=== PATIENT | female | born 1980 | race Caucasian/White ===

== ENCOUNTER 2024-07-06 07:50 | Outpatient (AMB) | payer OTHER, SELFPAY ==
--- OUTSIDE RECORDS SUMMARY | 2024-07-06 07:54 | XMS_ITS | Data Portability ---
Author Organization [facility] sones, [facility] Address [address] [place] [phone] Care Team Providers Care Apartment Groundskeeper Name Role Phone WASHINGTON THAKKAR Referring Provider [phone] WASHINGTON THAKKAR Referring Provider WASHINGTON THAKKAR Primary Care Provider Assessment Encounter Date Assessment Date Assessment LastModified by Organization Details LastModified Time 12/31/2023 12/31/2023 IMPRESSION: Memory problems. ? Difficulty in pulling in information from widely varying topics in real-time; ? Difficulty in remembering details of information from recent seminars or workshops. ? Unchanging since emergent ~2004. ? 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 This situation likely relates to an innate, relative lack of robustness and a particular subdomain of the patient's memory systems, within an overall sophisticated/robus t profile of cognitive capabilities. This is a natural variation that occurs across individuals. No individual has uniformly superior capabilities across all cognitive domains. This is not a disease. There may be a relatively reduced robustness in her ability to have a wide focus of attention and thus to remember in parallel a large number of unrelated concepts without in memory aid. This is in contrast to her evident superior capability to focus mind and memory in particular in a single direction with superior analytic and synthetic capabilities, evidenced by her successful completion of her PhD. 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 This is in contrast to her strong semantic memory, again evidenced by her PhD, and explaining her capability and remembering important physical content. which have strong somatic content. The issue only emerged into awareness and graduate school because only in graduate school were her mental faculties sufficiently tasked for this variation of her cognitive capabilities across domains to become evident. I gave an analogy from baseball: Virtually all major league baseball players outperform all of their peers during early development through high school and through minor leaks or college. It is only when they reach the major leagues that they can perceive that they might be better in some skills than other major leaguers, worse at other skills. I suggested pursuing alternate cognitive processing pathways to reach goals that are hampered by her relatively reduced robust this in certain memory tasks as just discussed. 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 I suggested taking notes at workshops and seminars such as occur at [facility], with special attention to references that might be given on slides. If she finds none, a question for a reference to the present or, after the seminar by provider with relevant references. She might download the reference and refer to the reference in her notes so that she can use it when she wishes to refresh her memory on the particular workshop/seminar. With respect to difficulty in taking in parallel information across disparate/varied topics, I suggested a large screen attached to her computer so that multiple articles or documents are open at the same time so that she can easily refer across these different information sources as she is trying to synthesize during a task. I suggested that if she wished a second opinion, she might consider a neuropsychologist. I am less expert at what I think is going on than a neuropsychologist. A neuropsychologist would be able to do a detailed neuropsychology evaluation providing specific understanding on peaks and valleys across and within cognitive domains. From this, they might be able to offer more specific guidance on alternate cognitive processing strategies. We briefly discussed alternate diagnoses that I think less likely. I do not think there is a significant abnormality that might be found by brain MRI, such as an occult tumor. Over the course of 20 years, there would have been worsening. She wondered about whether concussive injuries from her history of soccer playing might play a role. Chronic traumatic encephalopathy is the disease classification in this situation. This can present with slowly worsening memory, usually with negative behavioral changes. She has neither. One can never exclude chronic traumatic encephalopathy. Brain MRI can suggest chronic traumatic encephalopathy in someone of her young age if there is significant small brain volume (usually refer to as atrophy by the neuroradiologists). Given her absence of suggestive symptoms, I think this is quite unlikely. Although I think unlikely these to issues that are related to brain MRI abnormality, I offered brain MRI. This offer was not excepted. Occasionally, deficiencies in B12 and/or D vitamins, dysregulation of thyroid hormones, and tertiary syphilis can all cause cognitive disability. These are unlikely for someone her age and/or with her presentation. Went untreated, all usually involves slow worsening which is not present. Nevertheless, I suggest that these be checked at her next yearly physical with primary care. Primary care reported the patient did not note any symptoms or diagnosis of attention deficit. Today, she says that her mind might moved to unconnected topics during seminars. However, her mind stayed on the central topic during grad school when that topic related to her thesis work. She still had her memory problems. This makes attention deficit less likely but does not exclude this possibility. Should she feel, upon thinking over the situation, that maybe she does have some attention deficit, a trial of an appropriate medication? Ritalin, Adderall or all related medication? should not cause harm and may provide elucidation. I defer to primary care in this eventuality unless it is desired for me to manage this direction. There was one direction that I did not address sufficiently: Primary care reports that she has no major changes in sleep patterns but sometimes she wakes in the middle of the night. I did not follow this up to understand how often she wakes in the middle of the night, and whether she feels unrested when she wakes in the morning on those occasions or more generally. If this is the case, then perhaps there is a sleep disorder that may worsen her memory. I defer to primary care for considering sleep medicine consultation in such a case. Medications per patient: Nicole , Vitamin D >>>>>>>>>>>> PLAN Yanelis De La Cruz December 31, 2023 Follow-up as needed. isamar Not available 12/31/2023 19:53:24 Plan of Treatment Reminders Order Date Submit Date Provider Last Modified By Organization Details Last Modified Time Details Appointments None record ed. Lab None record ed. Referral None record ed. Procedures None record ed. Surgeries None record ed. Imaging None record ed. Medication Orders None record ed. Patient TargetsNo targets recorded. Patient InstructionsNo instructions recorded. Reason for Referral None Reported. Procedures Surgical History Date Name Laterality Status Provider Name and Address Organization Details Recorded Time 12/31/2023 DATA REVIEW completed Jagdish Etienne MD [address] [place] [address] [place], [phone], [facility] Neurology [facility] 12/31/2023 19:35:38 Imaging Results None recorded. Procedure Notes None recorded. Medical Equipment None Reported. Allergies No known drug allergies Medications Name Sig Start Date Stop Date Status Note LastModified by Organization Details LastModified Time nitrofurantoin monohydrate/mac rocrystals 100 mg capsule TAKE 1 CAPSULE BY MOUTH TWICE A DAY FOR 5 DAYS active Not Available Not Available No t Available calcium active Not Available Not Avail able Not Available Vitamin D active Not Available Not Margarita ilable Not Available Nicole Allergy active Not Available N ot Available Not Available Vitals Date Recorded Body height Body mass index (BMI) Body weight Respiratory rate Provider Name and Address Organization Details Last Updated DateTime 12/31/2023 172.72 cm 22 kg/m2 90984.89 g 12 /min Layne Romero [facility] 12/31/2023 14:56:46 Social History Question Answer Notes LastModified by Organizat ion Details LastModified Time Tobacco Smoking Status [facility] 12/31/2023 14:57:59 What Is Your Level Of Alcohol Consumption? Occasional Information not available 12/31/2023 What Is Your Level Of Caffeine Consumption? Moderate Information not available 12/31/2023 What Is The Highest Grade Or Level Of School You Have Completed Or The Highest Degree You Have Received? [id number] Information not available 12/31/2023 Which Of Your Hands Is Dominant? Right Information not available 12/31/2023 Sex: Unknown Functional Status None recorded. Mental Status None recorded. Family History Relationship Description Onset Age of this Age Resolved Age Notes LastModified by Organization Details LastModified Time Mother Disorder of thyroid gland Not available 2023 14:57:46 Medical History Condition Response Claustrophobia N Head Trauma/Injury N Hospitalizations N High Blood Pressure or Hypertension N Thyroid Problems N Depression N Brain Tumors N Lung Disease N COPD or emphysema N Encephalitis N PTSD N Vitamin B12 deficiency N Heart Attack ([place]) N Spine Problems N Obstructive Sleep Apnea N Alcoholism N Diabetes N Autoimmune disease N Bleeding Disorder N Arthritis N Cerebral Palsy N Tuberculosis N Developmental Problems N Neck Problems N Cancer N Back Problems N Stroke N Asthma N Heartburn, acid reflux, GERD N Vitamin D Deficiency N Epilepsy/Seizures N Bipolar Disorder N Sleep Disorder N Aneurysm N Hepatitis N Liver Disease N Heart Disease N Fibromyalgia N Headaches N High Cholesterol or Hyperlipidemia N Osteoporosis N Kidney Disease N Gynecological HistoryNo gynecological history recorded. Obstetrics History GPAL:G 0 P 0 0 0 0 Past Encounters Encounter ID Performer Location Encounter Start Date Encounter Closed Date Diagnosis/Indication Diagnosis SNOMED-CT Code Diagnosis ICD10 Code Diagnosis Note [id number] Jagdish Etienne MD [address] [place] [address] 12/31/2023 14:42:57 01/04/2024 09:51:28 Mild neurocognitive disorder 704600770 G31.84 Health Concerns Section Related Observation LastModified by Organization Detai ls LastModified Time None Recorded Concern Status LastModified by Organization Details LastModified Time None Recorded Advance Directives Directive None Recorded Payers Encounter Date Sequence Insurance Name Policy Number Policy Mcgrath Covered Member ID Mcgrath Member ID Guarantor Name 12/31/[address] [facility] [employer] (PPO) [id number] 1 Yanelis F Jono [id number] Yanelis Jono Notes Date Note Type Note Provider Name and Address Organization Details Recorded Time 12/31/2023 text/html Yanelis Warnerjanell December 31, 2023 presents for initial neurology consultation for assessment and management of problems with memory emerging ~2004, in correlation with starting grad school, and fluctuating since then, without any enduring worsening or improvement.? 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 She is unaccompanied.She remembers no problems with memory growing up or through college? during which time she majored in chemical engineering.>>>>>>> >>>>>December 31, 2023 presenting symptomotology:In 2004, with starting graduate school, she began noticing memory problems. These problems occurred prominently in the context of seminars, after which she had trouble remembering the salient contents. This is despite participating actively in discussions during a seminar. Perhaps her mind sometimes moved to different topics while a seminar was going on. This was not true with the seminar happen to focus on her central recharged topic. Her memory for events after the seminar felt lacking whether or not there was such a focus.Since finishing graduate school, she has encountered situations similar to graduate school seminars at workshops conducted by [employer]. In such settings, she continues to find problems with remembering salient contents similar to her problems in graduate school.She notes particular problem with remembering numbers. If her asked how much money there is in their bank accounts, she has no idea. I suggest that remembering related to finances can be a loaded topic, affected by emotions relating to money. She does not disagree, but notes that she also has had problems remembering numbers from reading or seminars such as percentages of subjects with particular outcomes in experiments of interest to her. She remembers a [employer] sponsored seminar in recent times where there was an especially interesting talk which she left thinking that she wanted to follow-up on the results as it had bearing on some of her interests. When she talked about the subject to her , she found her memory lacking in details from that talk that she remembers clearly of remembers clearly world particular interest. Days later, all she could remember was that the talk was about UTIs.She emphasizes that she had no memory problems in college. She could remember the important constants within the calculations needed within her chemical engineering classes. Classes in general were focused and she did not need to pull and information from widely varying sources to complete her college tasks. Seminars and workshops are different: They require integrating information from widely varying topics in real-time.With curriculum planning, she is slowed because she might do something related to curriculum planning and forget that she has done this. She might ask her labor relations director to work on something and then forget she has done this and bring up the same subject with the labor relations director at a later date.She reaffirms a conclusion that primary care has come to that she does not have significant depression or anxiety. She notes that she is not good at remembering movies. Jagdish Etienne MD [address] [place] [address] [place], [phone], [facility] 01/04/2024 19:33:47 OBGyn Episode No OBEpisode recorded.
--- NOTE | 2024-07-06 08:02 | MHC.OFFVIS ---
Vital Signs 07/06/24 08:04 Height 5 ft 8 in Weight 143 lb 11.862 oz BMI 21.9 BP 98/70 Blood Pressure Location Lt brachial Position Sitting Pulse 77 Pulse Source Pulse Oximeter Pulse Oximetry (%) 100 Oxygen Delivery Method Room Air Intake Visit Reasons: Raynaud's syndrome Intake Note: Pt presents today with raynaud's. Allergies No Known Allergies Allergy (Verified 07/06/24 08:05) HPI HPI Raynaud's syndrome: Details: On two occasions tip of finger turned blue. She warmed it right away. Denies sicca symptoms, fever, rash, oral ulcer, urinary symptoms, dyspnea, pleurisy and joint swelling. Right ankle gave out on her when jogging on a few occasions in the last year. She fell on one occasion while jogging. Jumping at son's soccer practice recently, she felt that the ankle would give out. When she was young she played soccer and basketball and injured her ankles. She reports spraining her ankles on multiple occasions. At 1 incident she thought she broke her ankle. 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 Good respiratory effort Skin: No lesions seen MSK: No tenderness of any joint. No synovitis. Normal range of motion of upper extremity and lower extremity. Power 5/5 ankle flexors and extensors. Assessment & Plan Assessment & Plan (1) Unstable right ankle: Comment: Subjectively. Exam is unremarkable. I have ordered x-ray for further evaluation with consideration of secondary osteoarthritis contributing from past injuries in childhood. Code(s): M25.371 - Other instability, right ankle Category: Medical Plan: X-ray right ankle ordered Patient agreed to physical rehabilitation for ankle strengthening. PT requisition given to patient as she prefers to do physical therapy locally in [place]. Return to clinic in 6 months or sooner if needed (2) Raynaud disease without gangrene: Comment: Raynaud's syndrome is managed with conservative management History of High titer positive KUSUM and positive Ro antibody without clinical signs or symptoms of systemic connective tissue disease. Code(s): I73.00 - Raynaud's syndrome without gangrene Category: Medical Plan: Continue conservative management. Orders: Orders XR ankle RT min 3V Today M25.371 - Other instability, right ankle PT Evaluation and Treatment Today M25.371 - Other instability, right ankle Coding Level of Care Code Est Pt Level 4 (66877) Complex EM visit Add On G2211 Diagnoses Unstable right ankle M25.371 Raynaud disease without gangrene I73.00
[2024-07-06 08:04] VITALS: BP 98/70; PULSE 77; O2SAT 100; BMI 21.9
== END 2024-07-06 08:30 | disposition home or self-care (01) ==
PROVIDERS: Visit Provider Internal Medicine Rheumatology
DX: M25.371 Other instability, right ankle (principal); I73.00 Raynaud's syndrome without gangrene
CPT/HCPCS: 99214

== ENCOUNTER → 2024-07-06 07:50 | Outpatient (BNVA) | payer OTHER, SELFPAY | PROVIDERS: Visit Provider Internal Medicine Rheumatology ==

== ENCOUNTER 2025-01-11 09:01 | Outpatient (AMB) | payer OTHER, SELFPAY ==
--- OUTSIDE RECORDS SUMMARY | 2011-10-30 | XMS_ITS | Encounter Summary ---
Author Organization [facility] Address Critical access hospital [facility] [address] [place] [phone] Phone Care Team Providers Care Forensic Pathologist Name Role Phone Unavailable Primary Care Provider Unavailabl e Encounter Details Date Type Department Care Team (Late st Contact Info) Description 10/30/2011 Hospital Encounter [facility],Outside Imaging [address] [place], [place] [id number] System, Provider [place] In, [place] [address] Social History Tobacco Use Types Packs/Day Years Used Date Smoking Tobacco: Never Smokeless Tobacco: Never Alcohol Use Standard Drinks/Week Comments Yes 3 (1 standard drink = 0.6 oz pur e alcohol) Education Answer Date Recorded Are you interested in more education? Not on alla e 08/22/2022 Are you concerned about learning? Not on file 08/22/2022 No 08/22/2022 No 08/22/2022 Digital Access Answer Date Recorded No 09/22/2022 No 09/22/2022 Reliable internet access at home? Not on file 09/22/2022 Device with a working camera? 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 Not on file Not on file documented as of this encounter Plan of Treatment Upcoming Encounters Date Type Department Care Team (Late st Contact Info) Description 10/12/2024 Procedure Pass [address] [place] [address] 05/09/2025 10:15 AM EST Appointment [address] [place] [address] System, Provider Not In, [facility] [address] [address] documented as of this encounter Procedures Procedure Name Priority Date/Time Associated Diagnosis Comments BI MAMMOGRAM OUTSIDE (NO INTERPRETATION) Routine 10/30/2011 12:00 AM EDT documented in this encounter Results * Mammogram Outside (No Interpretation) (10/30/2011 12:00 AM EDT) Narrative SYSTEMGENERATED, DOCUMENTATION - 06/24/2019 10:38 AM EST This study is for PACS storage only and not for interpretation. us Provider Not In System PhD IMG OUTSIDE IMAGING W /OUT INTERPRETATION Final Result documented in this encounter Visit Diagnoses Not on filedocumented in this encounter Additional Source Comments The information contained in this document represents components of the legal health record. It is not the complete legal health record.[facility]
[2025-01-11 09:06] VITALS: BP 100/70; PULSE 78; O2SAT 100; BMI 21.6
--- NOTE | 2025-01-11 09:06 | MHC.OFFVIS ---
Vital Signs 01/11/25 09:06 Height 5 ft 8 in Weight 142 lb BMI 21.6 BP 100/70 Blood Pressure Location Lt brachial Position Sitting Pulse 78 Pulse Source Pulse Oximeter Pulse Oximetry (%) 100 Oxygen Delivery Method Room Air Intake Visit Reasons: 6 months Intake Note: Pt presents today with raynaud's. Accompanied by: Self / Same As Patient Allergies No Known Allergies Allergy (Verified 07/06/24 08:05) HPI HPI 6 months: Details: No recurrent ankle issue. She did not have a fall. She started running and it seemed to help improve her and girdle stability. She went to PT for a session who did not find that her ankle was week. She has an exercise routine at home with using a stationary bike and weightlifting. She is currently going to physical therapy for mid back muscle strain. Denies fevers, dyspnea, pleurisy, oral ulcers or genital ulcers, sicca symptoms, migraines, urinary symptoms, joint swelling. Raynaud's syndrome triggered in the morning. She feels tingling in her fingertips. Eventually goes away. It may last a few hours. Soreness in right 3-4th proximal phalanx for a few months. No injury. Occurs with flexing. Stiffness and soreness last 30 minutes in the morning. 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 Good respiratory effort Skin: No lesions seen. No digital ulcerations. No digital discoloration. MSK: No tenderness of any joint. No synovitis. Normal range of motion of upper extremity and lower extremity. Assessment & Plan Assessment & Plan (1) Unstable right ankle: Comment: Resolved. Code(s): M25.371 - Other instability, right ankle Category: Medical Plan: Monitor clinically (2) Raynaud disease without gangrene: Comment: Raynaud's syndrome is active in the morning. She does not have any signs or symptoms suggestive of systemic connective tissue at this time. History of High titer positive KUSUM and positive Ro antibody. Code(s): I73.00 - Raynaud's syndrome without gangrene Category: Medical Plan: We discussed conservative measures. She will bring electric hand warmer to her office and start warming her hands. Return to clinic in 1 year or sooner if needed (3) Tendinitis of extensor tendon of right hand: Comment: Localized pain in the morning with stiffness to right 3rd and 4th proximal phalanx may be related to tendonitis of extensor tendon. We discussed conservative management Code(s): M77.8 - Other enthesopathies, not elsewhere classified Category: Medical Plan: OT ordered to have done local to her home X-ray of right hand ordered Return to clinic in 1 year or sooner if needed (4) Hand pain, right: Code(s): M79.641 - Pain in right hand Category: Medical Plan: See above Orders: Orders OT Evaluation and Treatment Today M77.8 - Other enthesopathies, not elsewhere classified XR hand RT min 3V Today M79.641 - Pain in right hand Coding Level of Care Code Est Pt Level 4 (53793) Complex EM visit Add On G2211 Diagnoses Unstable right ankle M25.371 Raynaud disease without gangrene I73.00 Tendinitis of extensor tendon of right hand M77.8 Hand pain, right M79.641
--- OUTSIDE RECORDS SUMMARY | 2025-01-11 10:33 | XMS_ITS | Encounter Summary ---
Author Organization [facility] Address [address] [place] [address] Phone Care Team Providers Care Art Handler Name Role Phone Reynaldo Vargas MD Primary Care Provider [phone] Devan Sullivan MD, PhD Unavailable [phone] Reason for Referral * Outpatient Procedure - New Request Specialty Diagnoses / Procedures Referred By Roosevelt hagan Referred To Contact Radiology Diagnoses Abnormal mammogram Procedures Mammogram Diagnostic Post Procedure (Left) Reynaldo Vargas MD [address] [place] [address] Phone: tel: fax: [email or web address] Referral ID Status Reason Start Date Expiration Date V isits Requested Visits Authorized [id number] New Request 04/11/2024 1 1 Encounter Details Date Type Department Care Team (Late st Contact Info) Description 04/11/2024 Ancillary Orders [facility], Mammography- [address] [address] Reynaldo Vargas MD [address] [place] [address] [email or web address] Abnormal mammogram (Primary Dx) Social History Tobacco Use Types Packs/Day Years [...] st Contact Info) Description 10/12/2024 Procedure Pass [address] [place] [address] 05/09/2025 10:15 AM EST Appointment [address] [place] [address] System, Provider [place] In, [place] [address] documented as of this encounter Results * BI MAMMOGRAM DIAGNOSTIC POST PROCEDURE NO TOMOSYNTHESIS NO CAD (LEFT) (04/11/2024 10:06 AM EST) Anatomical Region Laterality Modality Breast Left Left Mammography 04/11/2024 10:2 6 AM EST Addenda Addendum by Maryam Fairbanks MD on 04/13/2024 11:52 AM EST ADDENDUM: PATHOLOGY RESULTS LEFT breast: Axillary tail, altered echotexture, vision clip. PATHOLOGY: Benign fibroadipose tissue. Breast tissue or lymphoid tissue is not seen in multiple levels examined. Radiologist comments: Benign pathologic diagnosis is concordant with imaging findings. The area is documented to be well sampled on biopsy images. Recommendation: Followup mammogram and ultrasound in 6 months. The patient will be notified by the referring provider as per current protocol. Impressions 04/11/2024 10:28 AM EST Ultrasound-guided core needle biopsy of the left breast - please see report content for details. An addendum to this report will be dictated when pathology results are available. Narrative 04/11/2024 10:28 AM EST BI [facility] BIOPSY OF BREAST (LEFT), BI MAMMOGRAM DIAGNOSTIC POST PROCEDURE NO TOMOSYNTHESIS NO CAD (LEFT) Additional patient information: Left breast mass, axillary tail COMPARISON: Comparison is made with relevant prior imaging. TECHNIQUE: The procedure was explained to the patient, including discussion of risks and benefits, and written informed consent was obtained. A preprocedural timeout was performed to confirm patient identity with multiple identifiers, as well as the side of the procedure to be performed. Ultrasound imaging was performed to localize the target. The procedure site was prepped using standard aseptic technique. Local anesthesia was administered and documented in the EMR. Under ultrasound guidance, core biopsy was performed of the target lesion. FINDINGS: SITE #1 Location: Left breast axillary tail Target: 17 mm mass Device: 14-gauge core biopsy needle Clip: Vision clip Post procedure mammogram: Biopsy clip in good position. Specimen: Multiple cores obtained. Submitted in formalin to pathology. The patient tolerated the procedure and there were no immediate complications. Reynaldo Vargas MD [facility] EXAMS Edited Resul t - Final documented in this encounter Visit Diagnoses Diagnosis Abnormal mammogram- Primary Abnormal mammogram, unspecified Abnormal mammogram Abnormal mammogram, unspecified documented in this encounter Care Teams Art Handler Relationship Specialty Start Date End Date Reynaldo Vargas MD [address] [place] [address] PCP - General Family Medicine 05/31/19 Devan Sullivan MD, PhD [address] [place] [address] YAW9 JATINDER [place] [phone] [email or web address] Consulting Provider Hematology 01/22/21 documented as of this encounter Additional Source Comments The information contained in this document represents components of the legal health record. It is not the complete legal health record.[facility]
--- OUTSIDE RECORDS SUMMARY | 2025-01-11 10:34 | XMS_ITS | Encounter Summary ---
Author Organization [facility] Address [address] [place] [address] Phone Care Team Providers Care Patient Care Technician Instructor Name Role Phone Reynaldo Vargas MD Primary Care Provider Devan Sullivan MD, PhD Unavailable [phone] Encounter Details Date Type Department Care Team (Late st Contact Info) Description 10/12/2024 Transcribe Orders Virtual Department [address] [place] [phone] Rafia Alarcon MA [email or web address] Breast screening (Primary Dx) Social History Tobacco Use Types [...] st Contact Info) Description 10/12/2024 Procedure Pass [address] [place] [address] 05/09/2025 10:15 AM EST Appointment [address] [place] [address] System, Provider [place] In, [place] [address] Scheduled Orders Name Type Priority Associated Diagnoses Orde r Schedule Mammogram Screening (Bilateral) Imaging Routine Breast screening Expected: 10/12/2024, Expires: 10/12/2026 documented as of this encounter Visit Diagnoses Diagnosis Breast screening- Primary Breast screening, unspecified documented in this encounter Care Teams Patient Care Technician Instructor Relationship Specialty Start Date End Date Reynaldo Vargas MD [address] [place] [address] [email or web address] PCP - General Family Medicine 05/31/19 Devan Sullivan MD, PhD [address] [place] [address] [email or web address] Consulting Provider Hematology 01/22/21 documented as of this encounter Additional Source Comments The information contained in this document represents components of the legal health record. It is not the complete legal health record.[facility]
--- OUTSIDE RECORDS SUMMARY | 2025-01-11 10:34 | XMS_ITS | Encounter Summary ---
Author Organization [facility] Address [address] [place] [address] Phone Care Team Providers Care Art Glass Setter Name Role Phone Reynaldo Vargas MD Primary Care Provider [phone] Devan Sullivan MD, PhD Unavailable Encounter Details Date Type Department Care Team (Late st Contact Info) Description 04/19/2024 Procedure Pass [facility] - [address] [place] [phone] Social History Tobacco Use Types Packs/Day Years [...] st Contact Info) Description 10/12/2024 Procedure Pass [address] [place] [address] 05/09/2025 10:15 AM EST Appointment [address] [place] [address] System, Provider Not In, PhD [facility] [address] [address] documented as of this encounter Visit Diagnoses Not on filedocumented in this encounter Care Teams Art Glass Setter Relationship Specialty Start Date End Date Reynaldo Vargas MD [address] [place] [address] [email or web address] PCP - General Family Medicine 05/31/19 Devan Sullivan MD, PhD [address] [address] [email or web address] Consulting Provider Hematology 01/22/21 documented as of this encounter Additional Source Comments The information contained in this document represents components of the legal health record. It is not the complete legal health record.[facility]
--- OUTSIDE RECORDS SUMMARY | 2025-01-11 10:34 | XMS_ITS | Encounter Summary ---
Author Organization [facility] Address [address] [place] [address] Phone Care Team Providers Care Technical Solutions Engineer Name Role Phone Reynaldo Vargas MD Primary Care Provider Devan Sullivan MD, PhD Unavailable Encounter Details Date Type Department Care Team (Late st Contact Info) Description 04/19/2024 Procedure Pass [facility] - [address] [place] [address] Social History Tobacco Use Types Packs/Day Years [...] st Contact Info) Description 10/12/2024 Procedure Pass [address] [place] [address] 05/09/2025 10:15 AM EST Appointment [address] [place] [address] System, Provider [place] In, [place] [address] documented as of this encounter Visit Diagnoses Not on filedocumented in this encounter Care Teams Technical Solutions Engineer Relationship Specialty Start Date End Date Reynaldo Vargas MD [address] [place] [address] [email or web address] PCP - General Family Medicine 05/31/19 Devan Sullivan MD, PhD [address] [address] [email or web address] Consulting Provider Hematology 01/22/21 documented as of this encounter Additional Source Comments The information contained in this document represents components of the legal health record. It is not the complete legal health record.[facility]
--- OUTSIDE RECORDS SUMMARY | 2025-01-11 10:34 | XMS_ITS | Encounter Summary ---
Author Organization [facility] Address [address] [place] [address] Phone Care Team Providers Care Nut Feeder Name Role Phone Reynaldo Vargas MD Primary Care Provider [phone] Devan Sullivan MD, PhD Unavailable Encounter Details Date Type Department Care Team (Late st Contact Info) Description 01/04/2024 Ancillary Orders [facility], [address] [address] Reynaldo Vargas MD [address] [place] [address] [email or web address] Abnormal mammogram (Primary Dx) Social History Tobacco [...] st Contact Info) Description 10/12/2024 Procedure Pass [address] [place] [address] 05/09/2025 10:15 AM EST Appointment [address] [place] [address] System, Provider Not In, [place] [address] documented as of this encounter Results * (ABNORMAL) BI US BREAST LIMITED (LEFT) (02/25/2024 4:16 PM EDT) Anatomical Region Laterality Modality Breast Left, Breast Bilateral Left Ul trasound 02/25/2024 3:32 PM EDT Impressions 02/25/2024 4:26 PM EDT Asymmetry in the left axillary tail likely correlating with an area of altered architecture on ultrasound. These ultrasound-guided biopsy is recommended. BI-RADS 4A SUSPICIOUS Results and recommendations were communicated to the patient at time of examination. Narrative 02/25/2024 4:26 PM EDT BI MAMMOGRAM DIAGNOSTIC WITH TOMOSYNTHESIS WITH CAD (LEFT), BI US BREAST LIMITED (LEFT) Additional patient information: COMPARISON: Comparison is made with relevant prior imaging. Breast composition: The breast tissue is extremely dense which lowers the sensitivity of mammography. FINDINGS: Left Mammogram: There is a persisting asymmetry in the axillary tail on additional mammographic views. Margins are partially obscured. Very is fat density present within the finding. Real-time targeted ultrasound performed and demonstrates what is a smaller but likely correlating area of altered echotexture measuring approximately 2.7 cm x 1.0 cm x 0.7 cm. Margins are partially obscured. There is no evidence of attenuated or enhanced through transmission of sound. No internal blood flow. us Reynaldo Vargas MD IM US BREAST Final Result * (ABNORMAL) BI MAMMOGRAM DIAGNOSTIC WITH TOMOSYNTHESIS WITH CAD (LEFT) (02/25/2024 3:22 PM EDT) Anatomical Region Laterality Modality Breast Left Left Mammography 02/25/2024 3:32 PM EDT Impressions 02/25/2024 4:26 PM EDT Asymmetry in the left axillary tail likely correlating with an area of altered architecture on ultrasound. These ultrasound-guided biopsy is recommended. BI-RADS 4A SUSPICIOUS Results and recommendations were communicated to the patient at time of examination. Narrative 02/25/2024 4:26 PM EDT BI MAMMOGRAM DIAGNOSTIC WITH TOMOSYNTHESIS WITH CAD (LEFT), BI US BREAST LIMITED (LEFT) Additional patient information: COMPARISON: Comparison is made with relevant prior imaging. Breast composition: The breast tissue is extremely dense which lowers the sensitivity of mammography. FINDINGS: Left Mammogram: There is a persisting asymmetry in the axillary tail on additional mammographic views. Margins are partially obscured. Very is fat density present within the finding. Real-time targeted ultrasound performed and demonstrates what is a smaller but likely correlating area of altered echotexture measuring approximately 2.7 cm x 1.0 cm x 0.7 cm. Margins are partially obscured. There is no evidence of attenuated or enhanced through transmission of sound. No internal blood flow. Procedure Note Vitaly Mitchell MD - 02/25/2024 BI MAMMOGRAM DIAGNOSTIC WITH TOMOSYNTHESIS WITH CAD (LEFT), BI US BREASTLIMITED (LEFT) Additional patient information: COMPARISON: Comparison is made with relevant prior imaging. Breast composition: The breast tissue is extremely dense which lowers thesensitivity of mammography. FINDINGS: Left Mammogram: There is a persisting asymmetry in the axillary tail on additionalmammographic views. Margins are partially obscured. Very is fat densitypresent within the finding. Real-time targeted ultrasound performed anddemonstrates what is a smaller but likely correlating area of alteredechotexture measuring approximately 2.7 cm x 1.0 cm x 0.7 cm. Margins arepartially obscured. There is no evidence of attenuated or enhanced throughtransmission of sound. No internal blood flow. IMPRESSION: Asymmetry in the left axillary tail likely correlating with an area ofaltered architecture on ultrasound. These ultrasound-guided biopsy isrecommended. BI-RADS 4A SUSPICIOUS Results and recommendations were communicated to the patient at time ofexamination. us Reynaldo Vargas MD IMG MG EXAMS Final Result documented in this encounter Visit Diagnoses Diagnosis Abnormal mammogram- Primary Abnormal mammogram, unspecified Abnormal mammogram Abnormal mammogram, unspecified Abnormal mammogram Abnormal mammogram, unspecified documented in this encounter Care Teams Nut Feeder Relationship Specialty Start Date End Date Reynaldo Vargas MD [address] [place] [address] [email or web address] PCP - General Family Medicine 05/31/19 Devan Sullivan MD, PhD [address] [address] [email or web address] Consulting Provider Hematology 01/22/21 documented as of this encounter Additional Source Comments The information contained in this document represents components of the legal health record. It is not the complete legal health record.[facility]
--- OUTSIDE RECORDS SUMMARY | 2025-01-11 10:34 | XMS_ITS | Encounter Summary ---
Author Organization [facility] Address [address] [place] [address] Phone Care Team Providers Care Commodity Manager Name Role Phone Reynaldo Vargas MD Primary Care Provider Sal Mosley MD Unavailable Devan Sullivan MD, PhD Unavailable Encounter Details Date Type Department Care Team (Late Contact Info) Description 06/24/2019 Ancillary Orders [facility] Imaging [address] [place], [place] [id number] System, Provider Not In, PhD Partners [address] [address] Social History Tobacco Use Types Packs/Day Years Used Date Smoking Tobacco: Never Smokeless Tobacco: Never Alcohol Use Standard Drinks/Week Comments Yes 2 (1 standard drink = 0.6 oz pur e alcohol) Comments No Sex and Gender Information Value Date Recorded Sex Assigned at Female 05/04/2017 9:34 AM EST Legal Sex Female 11:26 AM EDT Gender Identity Female Sexual Orientation Straight 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 Not on file Not on file documented as of this encounter Plan of Treatment Upcoming Encounters Date Type Department Care Team (Late Contact Info) Description 10/12/2024 Procedure Pass [address] [place] [address] 05/09/2025 10:15 AM EST Appointment [address] [place], [place] [address] System, Provider [place] In, [place] [address] documented as of this encounter Results * Mammogram Outside (No Interpretation) (10/30/2011 12:00 AM EDT) Narrative SYSTEMGENERATED, DOCUMENTATION - 06/24/2019 10:38 AM EST This study is for PACS storage only and not for interpretation. us Provider Not In System PhD IMG OUTSIDE IMAGING W /OUT INTERPRETATION Final Result documented in this encounter Visit Diagnoses Not on filedocumented in this encounter Care Teams Commodity Manager Relationship Specialty Start Date End Date Reynaldo Vargas MD [address] [place] [address] PCP - General Family Medicine 05/31/19 Sal Mosley MD [address] [place] [phone] [email or web address] Primary Oncologist Hematology and Oncology 05/04/20 01/21/21 Devan Sullivan MD, PhD [address] [address] [email or web address] Consulting Provider Hematology 01/22/21 documented as of this encounter Additional Source Comments The information contained in this document represents components of the legal health record. It is not the complete legal health record.[facility]
--- OUTSIDE RECORDS SUMMARY | 2025-01-11 10:34 | XMS_ITS | Clinical Summary ---
Author Organization [facility] Address [address] [place] [phone] Phone Care Team Providers Care Care Transition Coordinator Name Role Phone Reynaldo Vargas MD Primary Care Provider [phone] Devan Sullivan MD, PhD Unavailable Allergies No known active allergies Medications fexofenadine (NICOLE) 180 MG tablet Take 180 mg by mouth continuous prn. Active famotidine (PEPCID) 10 MG tablet Take 10 mg by mouth continuous prn for heartburn. Active fluticasone propionate (FLONASE) 50 mcg/actuation nasal spray 1 spray by Nasal route daily as needed. Active ibuprofen (ADVIL,MOTRIN) 400 MG tablet Take 400 mg by mouth every 6 (six) hours as needed for pain (specific location in comments). Active calcium carbonate-vitam in D3 500 mg-400 units per tablet Take 1 tablet by mouth daily. Active diclofenac sodium (VOLTAREN) 75 MG EC tablet Take 75 mg by mouth daily. 1 Active Active Problems Patient Care Coordination No te Formatting of this note migh t be different from the original. Height 170.8cm no shoes taken by OC 05/10/19 Problem Noted Date Diagnosed Date KUSUM positive 12/22/2019 Assessment & Plan (12/09/2020 12:18 PM EDT): Except for elevated KUSUM and low positive SSA antibody there are no other abnormalities to suggest major systemic rheumatic disease at this time. She is otherwise mostly symptoms free and may remain such for the foreseeable future provided she does not incure any insults that may be infection, injury, severe stress etc. She is educated to continue healthful lifestyle: Balance rest and activity, well-balanced nutritionally diet, proper hydration. Sleep hygiene. Keep up-to-date with age-appropriate screenings and preventive strategies. Continue social distancing, diligent hand hygiene and wearing facial mask whenever living home. Daily sun protection. Work on decreasing frequency of diclofenac in favor of topical products and if possible nonpharmacologic measures. She was seen at [facility] for the second opinion in late September 2020 and is in favor of watchful monitoring every 6-12 months over starting Plaquenil at this time. Provided there are no additional abnormalities I am asking her to return in 6 months. Call with questions or problems in the interim. Assessment & Plan (06/26/2020 11:09 PM EST): Due to highly elevated KUSUM I took the liberty of more specific tests on initial visit in late November 2019. Except for elevated KUSUM and low positive SSA antibody there are no other abnormalities to suggest major systemic rheumatic disease at this time. She is symptoms free and may remain such for the foreseeable future provided she does not incure any insults that may be infection, injury, severe stress etc. She is educated to continue healthful lifestyle: Balance rest and activity, well-balanced nutritionally diet, proper hydration. Sleep hygiene. Keep up-to-date with age-appropriate screenings and preventive strategies. Continue social distancing, diligent hand hygiene and wearing facial mask whenever living home. Daily sun protection. Work on decreasing frequency of diclofenac in favor of topical products and if possible nonpharmacologic measures. 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 I briefly reviewed with her most frequent side effects such as GI upset, skin rashes, risk of rare retinopathy, cardiomyopathy or neuropathy after prolonged use. She is informed that it takes typically 3-4 months for effect. It also increases skin sun photosensitivity. Pamphlet with more details side effects and mode of action provided in writing on today's visit Provided there are no additional abnormalities I am asking her to return in 4 months. Call with questions or problems in the interim. Assessment & Plan (02/12/2020 9:27 PM EDT): Due to highly elevated KUSUM I took the liberty of more specific tests on initial visit in late November 2019. Except for elevated KUSUM and low positive SSA antibody there are no other abnormalities to suggest major systemic rheumatic disease at this time. She is symptoms free and may remain such for the foreseeable future provided she does not incure any insults that may be infection, injury, severe stress etc. She is educated to continue healthful lifestyle: Balance rest and activity, well-balanced nutritionally diet, proper hydration. Sleep hygiene. Keep up-to-date with age-appropriate screenings and preventive strategies. Continue social distancing, diligent hand hygiene and wearing facial mask whenever living home. Daily sun protection. Provided there are no additional abnormalities I am asking her to return in 6 - 12 months. Call with questions or problems in the interim. Assessment & Plan (12/25/2019 11:09 AM EDT): Due to highly elevated KUSUM I took the liberty of more specific tests to look for additional immunologic abnormalities that may help with securing diagnosis. Provided there are no additional abnormalities I am asking her to return in 6 months. Call with questions or problems in the interim. Neutropenia 11/09/2015 Overview (11/09/2015): s/p bone marrow bx to r/o leukemia; h/o tx with Neupogen x 3 yrs; event specialist in [place] concluded that pt simply has WBC count at lower end of normal; no further tx Seasonal allergies 11/08/2015 Overview (06/16/2017): Seasonal allergies;PHS Allergy Remediation;Reaction: Cough and Sneezing;Severity: Low Assessment & Plan (12/09/2020 12:19 PM EDT): Avoid known allergens. Continue Flonase and Nicole as instructed. Assessment & Plan (06/21/2020 4:28 PM EST): Avoid known allergens. Continue Flonase and Nicole as instructed. Assessment & Plan (02/12/2020 9:26 PM EDT): Avoid known allergens. Continue Flonase and Nicole as instructed. Assessment & Plan (12/25/2019 11:13 AM EDT): Avoid known allergens. Continue Flonase and Nicole as instructed. 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 Optimize stress management strategies. Avoid vasoconstrictors in OTC products for cold/flu and sinus. Assessment & Plan (06/21/2020 4:28 PM EST): Keep warm, dress in layers. Optimize stress management strategies. Avoid vasoconstrictors in OTC products for cold/flu and sinus. Assessment & Plan (02/12/2020 9:25 PM EDT): Keep warm, dress in layers. Optimize stress management strategies. Avoid vasoconstrictors in OTC products for cold/flu and sinus. Assessment & Plan (12/25/2019 11:10 AM EDT): Keep warm, dress in layers. Optimize stress management strategies. Avoid vasoconstrictors in OTC products for cold/flu and sinus. 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 Keep headboard elevated at 45 angle for nighttime. Assessment & Plan (02/12/2020 9:25 PM EDT): Avoid late, large, spicy meals. Keep headboard elevated at 45 angle for nighttime. Assessment & Plan (12/25/2019 11:10 AM EDT): Carefully continue Pepcid as prescribed. Avoid late, large, spicy meals. Keep headboard elevated at 45 angle for nighttime. Choroid plexus cyst 11/10/2013 Overview (06/16/2014): choroid plexus cyst; 19 weeks; otherwise normal survey; check Panorama History of neutropenia 11/10/2013 Overview (06/16/2014): H/O Neutropenia; s/p bone marrow bx to r/o leukemia; h/o tx with Neupogen x 3 yrs; event specialist in [place] concluded that pt simply has WBC count at lower end of normal; no further tx Assessment & Plan (12/09/2020 12:18 PM EDT): Longstanding since 2002-previous work-up negative for leukemia, treated with Neupogen between 2002 and 2004. Subsequent surveillance without progression. Negative neutrophil directed antibodies as of December 2018. Periodic monitoring advised-next appointment scheduled for December 2020. Assessment & Plan (12/25/2019 11:13 AM EDT): Longstanding since 2002-previous work-up negative for leukemia, treated with Neupogen between 2002 and 2004. Subsequent surveillance without progression. Negative neutrophil directed antibodies as of December 2018. Periodic monitoring advised. Encounters Date Type Department Care Team Description 10/12/2024 Transcribe Orders Virtual Department [address] [place] [address] Rafia Alarcon [place] Breast screening (Primary Dx) from Last 3 Months Immunizations Immunization Administration Dates Next Due COVID-19 (Pre-02/16) Moderna Vaccine, mRNA, PF 0 08/31/2020,08/03/2020 Influenza Quadrivalent Preservative Free IM 12/27 Influenza Recombinant Coleman valent Preservative Free IM 02/04/2020 Tdap 01/06/2014 Family History Medical History Relation Comments Hypothyroidism Brother Hypothyroidism Cancer Father kidney Rheumatoid arthritis Father Rheumatoid arthritis Maternal Grandmother Rheuma toid arthritis Uncoded Family History Maternal Uncle Pancreati c Cancer Heart murmur Mother Heart murmur Hypothyroidism Mother Hypothyroidism Uncoded Family History Mother autoimmun e disease; of ligaments Breast cancer Paternal Aunt Breast Cancer; 1 paternal aunt Alopecia Sister Colon cancer Neg Hx Ovarian cancer Neg Hx Relation Status Comments Brother Father Alive Maternal Grandmother Maternal Uncle Mother Paternal Aunt Sister Social History Tobacco Use Types Packs/Day Years Used Date Smoking Tobacco: Never Smokeless Tobacco: Never Tobacco Cessation:Counseling Given: Not Answered Alcohol Use Standard Drinks/Week Comments Yes 3 [...] file Not on file Not on file Last Filed Vital Signs Vital Sign Reading Time Taken Comments Blood Pressure 100/60 11/28/2020 10:00 AM EDT Pulse 66 05/10/2019 10:38 AM EST Temperature 36.8 C (98.2 F) 06/21/2020 3:51 PM EST Respiratory Rate - - Oxygen Saturation 99% 05/10/2019 10:38 AM EST Inhaled Oxygen Concentration - - Weight 65.4 kg (144 lb 3.2 oz) 11/28/2020 10:00 AM EDT Height 170.8 cm (5' 7.25 ) 11/28/2020 10:00 AM E DT Body Mass Index 22.42 11/28/2020 10:00 AM EDT Plan of Treatment Upcoming Encounters Date Type Department Care Team (Late st Contact Info) Description 10/12/2024 Procedure Pass [address] [place] [address] 05/09/2025 10:15 AM EST Appointment [address] [place] [address] System, Provider Not In, PhD [facility] [address] [address] Health Maintenance Due Date Last Done Comments LIPID PANEL 1979 DEPRESSION SCREENING 1991 HEPATITIS C SCREENING 1997 HIV ONE-TIME SCREENING (18-65 YEARS) 1997 PAP SMEAR 11/07/2018 11/08/2015, 10/25, 09/28/2014 COVID-19 VACCINE ( season) 2023 02/18/2023, 05/22/2022, 03/16/2021, Additional history exists COLOGUARD 01/25/2024 COLONOSCOPY 01/25/2024 COLORECTAL CANCER SCREENING 01/25/2024 FIT TEST 01/25/2024 FOBT 01/25/2024 SIGMOIDOSCOPY 01/25/2024 VIRTUAL COLONOSCOPY 01/25/2024 INFLUENZA VACCINE (#1) 2024 , 02/28/2022, 02/09/2021, Additional history exists MAMMOGRAM 12/31/2025 01/01/2024, 09/25, 06/14/2021, Additional history exists Adult Td,Tdap Booster 09/06/2033 09/07/2023, 014 SMOKING STATUS SCREENING (Once After 26 Yrs) Completed 10/06/2024 HEPATITIS A VACCINES Aged Out No long er eligible based on patient's age to complete this topic HIB VACCINES Aged Out No longer eligi ble based on patient's age to complete this topic MENINGOCOCCAL VACCINES (ACWY) Aged Out No longer eligible based on patient's age to complete this topic MENINGOCOCCAL VACCINES (B) Aged Out N o longer eligible based on patient's age to complete this topic PNEUMOCOCCAL VACCINES (0-49 years) Aged Out No longer eligible based on patient's age to complete this topic Medical Devices Implanted Type Area Wellhead Pumper Device Identifier Shelf Expiration Date Model / Serial / Lot Marker Ultraclip 17ga 10cm Tissue Dual Trigger Breast Ti Heart Shape Bx/5ea - [id number] Implanted:Qty: 1 on 04/11/2024 by Maryam Fairbanks MD at [facility] Left: Axilla [employer] [id number] / / Description:TISSUE MARKER IS VISION SHAPED AND PLACED IN THE LEFT AXILLARY TAIL Procedures Procedure Name Priority Date/Time Associated Diagnosis Comments BI MAMMOGRAM SCREENING WITH TOMOSYNTHESIS WITH CAD (BILATERAL) Routine 01/01/2024 9:20 AM EDT Breast screening PAP TEST Routine 11/08/2015 12:00 AM EDT from Last 3 Months or Most Recently Relevant to Health Maintenance Results * (ABNORMAL) BI MAMMOGRAM SCREENING WITH TOMOSYNTHESIS WITH CAD (BILATERAL) (01/01/2024 9:20 AM EDT) Anatomical Region Laterality Modality Breast Left, Breast Right, Breast Bilateral Bila teral Mammography 01/01/2024 2:40 PM EDT Impressions 01/02/2024 9:30 AM EDT 1. Asymmetry in the left breast for which additional imaging is recommended with diagnostic mammography and possible ultrasound. 2. No mammographic evidence of malignancy in the right breast. BI-RADS 0 INCOMPLETE Needs additional imaging evaluation The patient will be notified of the results and recommendations. The mammography department will contact the patient to arrange for the additional imaging. Narrative 01/02/2024 9:30 AM EDT BI MAMMOGRAM SCREENING WITH TOMOSYNTHESIS WITH CAD (BILATERAL) Additional patient information: Screening. COMPARISON: Comparison is made with relevant prior imaging. Breast composition: The breast tissue is extremely dense which lowers the sensitivity of mammography. FINDINGS: Right No abnormal masses, suspicious calcifications, or other significant findings are identified mammographically in the right breast. Left An asymmetry is present on MLO view in the upper left breast/axilla., posterior depth Procedure Note Xiomy Trujillo MD - 01/02/2024 BI MAMMOGRAM SCREENING WITH TOMOSYNTHESIS WITH CAD (BILATERAL) Additional patient information: Screening. COMPARISON: Comparison is made with relevant prior imaging. Breast composition: The breast tissue is extremely dense which lowers thesensitivity of mammography. FINDINGS: Right No abnormal masses, suspicious calcifications, or other significantfindings are identified mammographically in the right breast. Left An asymmetry is present on MLO view in the upper left breast/axilla.,posterior depth IMPRESSION: 1. Asymmetry in the left breast for which additional imaging isrecommended with diagnostic mammography and possible ultrasound. 2. No mammographic evidence of malignancy in the right breast. BI-RADS 0 INCOMPLETE Needs additional imaging evaluation The patient will be notified of the results and recommendations. Themammography department will contact the patient to arrange for theadditional imaging. us Reynaldo Vargas MD IM MG EXAMS Edited * Pap Smear (11/08/2015 12:00 AM EDT) 11/08/2015 11/09/2015 2:2 3 PM EDT Narrative SEE NARRATIVE - 11/13/2015 4:34 PM EDT [address] [address] HIDE SHAKER Cytology Report FINAL DIAGNOSIS A. CERVICAL, LIQUID BASED SPECIMEN: SPECIMEN ADEQUACY: Satisfactory for evaluation. INTERPRETATION: NEGATIVE FOR INTRAEPITHELIAL LESION OR MALIGNANCY. This specimen was analyzed by the automated ThinPrep Imaging System ([employer] Jeremy.) and the selected baxter were reviewed by a plating equipment tender. Electronically Signed Out By: WILFREDO Landrum(ASCP) Cervical cytology is a screening test primarily for squamous cancers and precursors and has associated false-negative and false-positive results. New technologies such as liquid-based preparations may decrease but will not eliminate all false-negative results. Regular sampling and follow-up of unexplained clinical signs and symptoms are recommended to minimize false negative results. Interpretation of this material was performed at: [facility], Department of Pathology [address] [facility] [address] Conformal Pad Former: Rex Ruiz M.D. CLINICAL HISTORY Date of Last Menstrual Period: 11/03/2015 Other Clinical Conditions: Routine SPECIMEN SOURCE A: CERVICAL, LIQUID BASED SPECIMEN GROSS DESCRIPTION One ThinPrep vial received. Patient Name: YANELIS DE LA CRUZ : 1980 (Age: 35) Sex: F Institution: [facility] Location: [facility] Date of Collection: 11/08/2015 Date of Reported: 11/13/2015 16:34 Results to: Virgen Day MD Virgen Day MD CYTOLOGY ORDERABLES Fin al Result SEE NARRATIVE from Last 3 Months or Most Recently Relevant to Health Maintenance Insurance [employer] [facility] CHOICE [facility] CHOICE [facility] CHOICE [facility] CHOICE [facility] CHOICE [facility] CHOICE [facility] CHOICE [facility] CHOICE [facility] CHOICE Care Teams Care Transition Coordinator Relationship Specialty Start Date End Date Reynaldo Vargas MD [address] [place] [address] [email or web address] PCP - General Family Medicine 05/31/19 Devan Sullivan MD, PhD [address] [place] [address] [email or web address] Consulting Provider Hematology 01/22/21 Additional Source Comments The information contained in this document represents components of the legal health record. It is not the complete legal health record.[facility]
--- OUTSIDE RECORDS SUMMARY | 2025-01-11 10:34 | XMS_ITS | Encounter Summary ---
Author Organization [facility] Address [address] [place] [phone] Phone Care Team Providers Care Automobile Drivers Name Role Phone Reynaldo Vargas MD Primary Care Provider Devan Sullivan MD, PhD Unavailable Encounter Details Date Type Department Care Team (Late st Contact Info) Description 01/04/2024 Procedure Pass [facility] - [address] [place] [phone] Social History Tobacco Use Types Packs/Day Years [...] st Contact Info) Description 10/12/2024 Procedure Pass [address] [place] [address] 05/09/2025 10:15 AM EST Appointment [address] [place] [address] System, Provider Not In, [facility] [address] [address] documented as of this encounter Visit Diagnoses Not on filedocumented in this encounter Care Teams Automobile Drivers Relationship Specialty Start Date End Date Reynaldo Vargas MD [address] [place] [phone] [email or web address] PCP - General Family Medicine 05/31/19 Devan Sullivan MD, PhD [address] [address] [email or web address] Consulting Provider Hematology 01/22/21 documented as of this encounter Additional Source Comments The information contained in this document represents components of the legal health record. It is not the complete legal health record.[facility]
--- OUTSIDE RECORDS SUMMARY | 2025-01-11 10:34 | XMS_ITS | Encounter Summary ---
Author Organization [facility] Address [address] [place] [phone] Phone Care Team Providers Care Miller Helper Name Role Phone Hanna Tolbert MD Primary Care Provider [email or web address] Reynaldo Vargas MD Primary Care Provider [phone] Reynaldo Vargas MD Primary Care Provider [phone] Sal Mosley MD Unavailable Devan Sullivan MD, PhD Unavailable [phone] Encounter Details Date Type Department Care Team (Late st Contact Info) Description 10/11/2018 Telephone [facility] at [address] [address] Sal Mosley MD [address] [place] [address] [phone] [email or web address] Social History Tobacco Use Types Packs/Day Years [...] st Contact Info) Description 10/12/2024 Procedure Pass [address] [place] [address] 05/09/2025 10:15 AM EST Appointment [address] [place] [address] System, Provider [place] In, [place] [address] documented as of this encounter Visit Diagnoses Not on filedocumented in this encounter Care Teams Miller Helper Relationship Specialty Start Date End Date Hanna Tolbert MD [email or web address] PCP - General Family Medicine 08/27/18 05/09/19 Reynaldo Vargas MD [address] [place] [phone] [email or web address] PCP - General Family Medicine 05/10/19 05/30/19 Reynaldo Vargas MD [address] [place] [phone] [email or web address] PCP - General Family Medicine 05/31/19 Sal Mosley MD [address] [place] [phone] [email or web address] Primary Oncologist Hematology and Oncology 05/04/20 01/21/21 Devan Sullivan MD, PhD [address] [address] [email or web address] Consulting Provider Hematology 01/22/21 documented as of this encounter Additional Source Comments The information contained in this document represents components of the legal health record. It is not the complete legal health record.[facility]
--- OUTSIDE RECORDS SUMMARY | 2025-01-11 10:34 | XMS_ITS | Encounter Summary ---
Author Organization [facility] Address [address] [place] [phone] Phone Care Team Providers Care Seed Buyer Name Role Phone Reynaldo Vargas MD Primary Care Provider Devan Sullivan MD, PhD Unavailable Encounter Details Date Type Department Care Team (Late st Contact Info) Description 10/01/2023 Procedure Pass [facility] - [address] [place] [address] Social History Tobacco Use Types Packs/Day Years [...] st Contact Info) Description 10/12/2024 Procedure Pass [address] [place] [address] 05/09/2025 10:15 AM EST Appointment [address] [place] [address] System, Provider Not In, [place] [address] documented as of this encounter Visit Diagnoses Not on filedocumented in this encounter Care Teams Seed Buyer Relationship Specialty Start Date End Date Reynaldo Vargas MD [address] [place] [phone] [email or web address] PCP - General Family Medicine 05/31/19 Devan Sullivan MD, PhD [address] [address] [email or web address] Consulting Provider Hematology 01/22/21 documented as of this encounter Additional Source Comments The information contained in this document represents components of the legal health record. It is not the complete legal health record.[facility]
--- OUTSIDE RECORDS SUMMARY | 2025-01-11 10:34 | XMS_ITS | Encounter Summary ---
Author Organization [facility] Address [address] [place] [address] Phone Care Team Providers Care Education And Outreach Coordinator Name Role Phone Reynaldo Vargas MD Primary Care Provider Reynaldo Vargas MD Primary Care Provider Sal Mosley MD Unavailable Devan Sullivan MD, PhD Unavailable Encounter Details Date Type Department Care Team (Late st Contact Info) Description 05/17/2019 Ancillary Orders Virtual Department [address] [place] [address] Reynaldo Vargas MD [address] [place] [phone] Breast screening Social History Tobacco Use Types Packs/Day Years [...] st Contact Info) Description 10/12/2024 Procedure Pass [address] [place] [address] 05/09/2025 10:15 AM EST Appointment [address] [place] [address] System, Provider Not In, PhD Partners [address] [address] documented as of this encounter Results * BI MAMMOGRAM SCREENING WITH TOMOSYNTHESIS WITH CAD (BILATERAL) (06/15/2019 9:47 AM EST) Anatomical Region Laterality Modality Breast Left, Breast Right, Breast Bilateral Bila teral Mammography 06/24/2019 10:2 3 PM EST Impressions 06/24/2019 10:26 PM EST BILATERAL BREASTS: Negative, no evidence of malignancy. Normal interval follow- up is recommended in 12 months. Bi-RADS: BI-RADS CATEGORY: 1 - Negative. DENSITY: The breast tissue is extremely dense, an appearance which could obscure a lesion on mammography. POS - CDHMAMA Narrative 06/24/2019 10:26 PM EST STUDY: Bilateral screening mammography with tomosynthesis and CAD TECHNIQUE: Bilateral full-field digital screening mammography is obtained and read in conjunction with computer-aided detection. Tomosynthesis as well as 2-D C view imaging were obtained. COMPARISON: Left mammogram on October 30, 2011. BREAST COMPOSITION: The breasts are extremely dense, which lowers the sensitivity of mammography. BILATERAL BREASTS: No significant masses, calcifications or other abnormalities are seen. Procedure Note Laryr Davis MD - 06/24/2019 STUDY: Bilateral screening mammography with tomosynthesis and CAD TECHNIQUE: Bilateral full-field digital screening mammography is obtainedand read in conjunction with computer-aided detection. Tomosynthesis aswell as 2-D C view imaging were obtained. COMPARISON: Left mammogram on October 30, 2011. BREAST COMPOSITION: The breasts are extremely dense, which lowers thesensitivity of mammography. BILATERAL BREASTS: No significant masses, calcifications or otherabnormalities are seen. IMPRESSION: BILATERAL BREASTS: Negative, no evidence of malignancy. Normal intervalfollow-up is recommended in 12 months. Bi-RADS: BI-RADS CATEGORY: 1 - Negative. DENSITY: The breast tissue is extremely dense, an appearance which couldobscure a lesion on mammography. POS - CDHMAMA Reynaldo Vargas MD IMG MG EXAMS Final Result documented in this encounter Visit Diagnoses Diagnosis Breast screening Breast screening, unspecified Breast screening Breast screening, unspecified documented in this encounter Care Teams Education And Outreach Coordinator Relationship Specialty Start Date End Date Reynaldo Vargas MD [address] [place] [address] [email or web address] PCP - General Family Medicine 05/10/19 05/30/19 Reynaldo Vargas MD [address] [place] [address] [email or web address] PCP - General Family Medicine 05/31/19 Sal Mosley MD [address] [place] [address] [email or web address] Primary Oncologist Hematology and Oncology 05/04/20 01/21/21 Devan Sullivan MD, PhD [address] [address] [email or web address] Consulting Provider Hematology 01/22/21 documented as of this encounter Additional Source Comments The information contained in this document represents components of the legal health record. It is not the complete legal health record.[facility]
--- OUTSIDE RECORDS SUMMARY | 2025-01-11 10:34 | XMS_ITS | Encounter Summary ---
Author Organization [facility] Address [address] [place] [address] Phone Care Team Providers Care Floor Care Specialist Name Role Phone Reynaldo Vargas MD Primary Care Provider Devan Sullivan MD, PhD Unavailable Encounter Details Date Type Department Care Team (Late st Contact Info) Description 05/14/2021 Procedure Pass [address] [place] [address] Social History Tobacco Use Types Packs/Day Years [...] st Contact Info) Description 10/12/2024 Procedure Pass [address] [place] [address] 05/09/2025 10:15 AM EST Appointment [address] Martin [place] [address] System, Provider Not In, PhD Partners [address] [address] documented as of this encounter Visit Diagnoses Not on filedocumented in this encounter Care Teams Floor Care Specialist Relationship Specialty Start Date End Date Reynaldo Vargas MD [address] [place] [address] JATINDER [place] [address] [email or web address] PCP - General Family Medicine 05/31/19 Devan Sullivan MD, PhD [address] [address] [email or web address] Consulting Provider Hematology 01/22/21 documented as of this encounter Additional Source Comments The information contained in this document represents components of the legal health record. It is not the complete legal health record.[facility]
--- OUTSIDE RECORDS SUMMARY | 2025-01-11 10:34 | XMS_ITS | Encounter Summary ---
Author Organization [facility] Address [address] [place] [address] Phone Care Team Providers Care Certified Physician Assistant Name Role Phone Reynaldo Vargas MD Primary Care Provider Reynaldo Vargas MD Primary Care Provider Sal Mosley MD Unavailable Devan Sullivan MD, PhD Unavailable Encounter Details Date Type Department Care Team (Late st Contact Info) Description 05/10/2019 Transcribe Orders [facility] Laboratory [address] [place] [address] Sal Mosley MD [address] [place] [phone] [email or web address] Screening for unspecified condition (Primary Dx) Social History Tobacco Use Types [...] st Contact Info) Description 10/12/2024 Procedure Pass [address] [place] [address] 05/09/2025 10:15 AM EST Appointment [address] [place] [address] System, Provider [place] In, [place] [address] documented as of this encounter Visit Diagnoses Diagnosis Screening for unspecified condition- Primary documented in this encounter Care Teams Certified Physician Assistant Relationship Specialty Start Date End Date Reynaldo Vargas MD [address] [place] [address] [email or web address] PCP - General Family Medicine 05/10/19 05/30/19 Reynaldo Vargas MD [address] [place] [address] [email or web address] PCP - General Family Medicine 05/31/19 Sal Mosley MD [address] [place] [address] [email or web address] Primary Oncologist Hematology and Oncology 05/04/20 01/21/21 Devan Sullivan MD, PhD [address] [address] [email or web address] Consulting Provider Hematology 01/22/21 documented as of this encounter Additional Source Comments The information contained in this document represents components of the legal health record. It is not the complete legal health record.[facility]
--- OUTSIDE RECORDS SUMMARY | 2025-01-11 10:34 | XMS_ITS | Encounter Summary ---
Author Organization [facility] Address [address] [place] [address] Phone Care Team Providers Care Bioinformatics Developer Name Role Phone Hanna Tolbert MD Primary Care Provider [email or web address] Reynadlo Vargas MD Primary Care Provider [phone] Reynaldo Vargas MD Primary Care Provider [phone] Sal Mosley MD Unavailable Devan Sullivan MD, PhD Unavailable [phone] Encounter Details Date Type Department Care Team (Late st Contact Info) Description 10/07/2018 Transcribe Orders [facility] Laboratory [address] [place] [address] Sal Mosley MD [address] [place] [address] Social History Tobacco Use Types Packs/Day Years [...] st Contact Info) Description 10/12/2024 Procedure Pass [address] [place] [address] 05/09/2025 10:15 AM EST Appointment [address] [place] [address] System, Provider Not In, [place] [address] documented as of this encounter Visit Diagnoses Not on filedocumented in this encounter Care Teams Bioinformatics Developer Relationship Specialty Start Date End Date Hanna Tolbert MD [email or web address] PCP - General Family Medicine 08/27/18 05/09/19 Reynaldo Vargas MD [address] [place] [address] [email or web address] PCP - General Family Medicine 05/10/19 05/30/19 Reynaldo Vargas MD [address] [place] [address] [email or web address] PCP - General Family Medicine 05/31/19 Sal Mosley MD [address] [place] [address] [email or web address] Primary Oncologist Hematology and Oncology 05/04/20 01/21/21 Devan Sullivan MD, PhD [address] [address] [email or web address] Consulting Provider Hematology 01/22/21 documented as of this encounter Additional Source Comments The information contained in this document represents components of the legal health record. It is not the complete legal health record.[facility]
--- OUTSIDE RECORDS SUMMARY | 2025-01-11 10:34 | XMS_ITS | Encounter Summary ---
Author Organization [facility] Address [address] [place] [address] Phone Care Team Providers Care Cuff Setter Name Role Phone Reynaldo Vargas MD Primary Care Provider [phone] Devan Sullivan MD, PhD Unavailable Encounter Details Date Type Department Care Team (Late st Contact Info) Description 05/14/2021 Transcribe Orders Virtual Department [address] [place] [address] Reynaldo Vargas MD [address] [place] [address] [email or web address] Breast screening (Primary Dx) [...] st Contact Info) Description 10/12/2024 Procedure Pass [address] [place] [address] 05/09/2025 10:15 AM EST Appointment [address] Martin [place] [address] System, Provider Not In, PhD [address] [address] documented as of this encounter Results * BI MAMMOGRAM SCREENING WITH TOMOSYNTHESIS WITH CAD (BILATERAL) (06/14/2021 11:38 AM EST) Anatomical Region Laterality Modality Breast Left, Breast Right, Breast Bilateral Bila teral Mammography 06/14/2021 3:12 PM EST Impressions 06/14/2021 3:12 PM EST No mammographic signs of malignancy. Annual screening is recommended. BI-RADS CATEGORY: 2 - Benign finding. DENSITY: The breast tissue is extremely dense, which lowers the sensitivity of mammography. Narrative 06/14/2021 3:12 PM EST Bilateral mammography is performed in conjunction with computed aided detection. 3-D tomography along with 2-D C view imaging was also performed. Comparison made to previous dated as far back as 10/30/2011 and as recent as 06/15/2019. No suspicious masses, areas of architectural distortion or suspicious microcalcifications. Stable diffuse bilateral microcalcifications, some of which are within the skin. Procedure Note Vitaly Mitchell MD - 06/14/2021 Bilateral mammography is performed in conjunction with computed aideddetection. 3-D tomography along with 2-D C view imaging was alsoperformed. Comparison made to previous dated as far back as 10/30/2011 andas recent as 06/15/2019. No suspicious masses, areas of architectural distortion or suspiciousmicrocalcifications. Stable diffuse bilateral microcalcifications, some ofwhich are within the skin. IMPRESSION: No mammographic signs of malignancy. Annual screening is recommended. BI-RADS CATEGORY: 2 - Benign finding. DENSITY: The breast tissue is extremely dense, which lowers thesensitivity of mammography. Reynaldo Vargas MD IMG MG EXAMS Final Result documented in this encounter Visit Diagnoses Diagnosis Breast screening- Primary Breast screening, unspecified Breast screening Breast screening, unspecified documented in this encounter Care Teams Cuff Setter Relationship Specialty Start Date End Date Reynaldo Vargas MD [address] [place] [address] [email or web address] PCP - General Family Medicine 05/31/19 Devan Sullivan MD, PhD [address] [address] [email or web address] Consulting Provider Hematology 01/22/21 documented as of this encounter Additional Source Comments The information contained in this document represents components of the legal health record. It is not the complete legal health record.[facility]
== END 2025-01-11 09:43 | disposition home or self-care (01) ==
LOC: HO.RHES 09:01
PROVIDERS: PCP Internal Medicine Rheumatology; Visit Provider Internal Medicine Rheumatology
DX: M25.371 Other instability, right ankle (principal); I73.00 Raynaud's syndrome without gangrene; M77.8 Other enthesopathies, not elsewhere classified; M79.641 Pain in right hand
CPT/HCPCS: 99214

== ENCOUNTER 2025-02-20 09:12 | Outpatient (REF) | payer OTHER, SELFPAY ==
--- OUTSIDE RECORDS SUMMARY | 2011-10-30 | XMS_ITS | Encounter Summary ---
Author Organization [facility] Address Critical access hospital [facility] [employer] [facility] [address] [place] [phone] Phone Care Team Providers Care Extruder Name Role Phone Unavailable Primary Care Provider Unavailabl e Encounter Details Date Type Department Care Team (Late st Contact Info) Description 10/30/2011 Hospital Encounter [facility],Outside Imaging [address] [place], [place] [phone] System, Provider [place] In, [place] [address] Social History Tobacco Use Types Packs/Day Years [...] st Contact Info) Description 10/12/2024 Procedure Pass [address] [place] [address] 05/09/2025 10:15 AM EST Appointment [address] [place] [address] System, Provider Not In, [facility] [address] [address] documented as of this encounter Procedures Procedure [...] It is not the complete legal health record.[facility]
--- NOTE | ~2025-02-20 | XR_ITS ---
EXAMINATION: XR LUMBOSACRAL SPINE CLINICAL INFORMATION: BACK PAIN COMPARISON: None available. TECHNIQUE: Three views of the lumbosacral spine. FINDINGS: 5 nonrib-bearing lumbar type vertebral bodies. No evidence of acute fracture or spondylolisthesis. Vertebral body heights are maintained. Mild L5 endplate spurring. Disc spaces are relatively maintained. Mild facet degeneration lower lumbar spine. No suspicious bony lesions. No abnormal soft tissue calcification. XR/XR lumbar spine 2-3V IMPRESSION: No acute osseous findings. Mild lumbar spondylosis. Electronically signed by: Jose Aguilar MD 02/20/2025 09:41 AM EDT
--- OUTSIDE RECORDS SUMMARY | 2025-02-20 10:08 | XMS_ITS | Encounter Summary ---
Author Organization [facility] Address [address] [place] [phone] Phone Care Team Providers Care Professor Of Archaeology Name Role Phone Reynaldo Vargas MD Primary Care Provider Devan Sullivan MD, PhD Unavailable Encounter Details Date Type Department Care Team (Late st Contact Info) Description 04/19/2024 Procedure Pass [facility] - [address] [place] [address] Social History Tobacco Use Types Packs/Day Years [...] st Contact Info) Description 10/12/2024 Procedure Pass [address] [place] [address] 05/09/2025 10:15 AM EST Appointment [address] [place] [address] System, Provider [place] In, [place] [address] documented as of this encounter Visit Diagnoses Not on filedocumented in this encounter Care Teams Professor Of Archaeology Relationship Specialty Start Date End Date Reynaldo Vargas MD [address] [place] [address] [email or web address] PCP - General Family Medicine 05/31/19 Devan Sullivan MD, PhD [address] [address] [email or web address] Consulting Provider Hematology 01/22/21 documented as of this encounter Additional Source Comments The information contained in this document represents components of the legal health record. It is not the complete legal health record.[facility]
--- OUTSIDE RECORDS SUMMARY | 2025-02-20 10:08 | XMS_ITS | Encounter Summary ---
Author Organization [facility] Address [address] [place] [address] Phone Care Team Providers Care Ic Designer [employer] Name Role Phone Hanna Tolbert MD Primary Care Provider [email or web address] Reynaldo Vargas MD Primary Care Provider [phone] Reynaldo Vargas MD Primary Care Provider [phone] Sal Mosley MD Unavailable Devan Sullivan MD, PhD Unavailable [phone] Encounter Details Date Type Department Care Team (Late st Contact Info) Description 10/07/2018 Transcribe Orders [facility] Laboratory [address] [place] [address] Sal Mosley MD [address] [place] [address] [email or web address] Social History Tobacco Use Types Packs/Day Years [...] Contact Info) Description 10/12/2024 Procedure Pass [address] [place] [address] 05/09/2025 10:15 AM EST Appointment [address] [place] [address] System, Provider Not In, [place] [address] documented as of this encounter Visit Diagnoses Not on filedocumented in this encounter Care Teams Ic Designer [employer] Relationship Specialty Start Date End Date Hanna Tolbert MD [email or web address] PCP - General Family Medicine 08/27/18 05/09/19 Reynaldo Vargas MD [address] [place] [address] [email or web address] PCP - General Family Medicine 05/10/19 05/30/19 Reynaldo Vargas MD [address] [place] [address] [email or web address] PCP - General Family Medicine 05/31/19 Sal Mosley MD [address] [place] [address] [email or web address] Primary Oncologist Hematology and Oncology 05/04/20 01/21/21 Devan Sullivan MD, PhD [address] [address] [email or web address] Consulting Provider Hematology 01/22/21 documented as of this encounter Additional Source Comments The information contained in this document represents components of the legal health record. It is not the complete legal health record.[facility]
--- OUTSIDE RECORDS SUMMARY | 2025-02-20 10:08 | XMS_ITS | Encounter Summary ---
Author Organization [facility] Address [address] [place] [address] Phone Care Team Providers Care Restoration Technician Name Role Phone Reynaldo Vargas MD Primary Care Provider Devan Sullivan MD, PhD Unavailable Encounter Details Date Type Department Care Team (Late st Contact Info) Description 10/01/2023 Procedure Pass [facility] - [address] [place] [address] Social History Tobacco Use Types Packs/Day Years [...] st Contact Info) Description 10/12/2024 Procedure Pass [address] [place] [address] 05/09/2025 10:15 AM EST Appointment [address] [place] [address] System, Provider [place] In, [place] [address] documented as of this encounter Visit Diagnoses Not on filedocumented in this encounter Care Teams Restoration Technician Relationship Specialty Start Date End Date Reynaldo Vargas MD [address] [place] [address] [email or web address] PCP - General Family Medicine 05/31/19 Devan Sullivan MD, PhD [address] [address] [email or web address] Consulting Provider Hematology 01/22/21 documented as of this encounter Additional Source Comments The information contained in this document represents components of the legal health record. It is not the complete legal health record.[facility]
--- OUTSIDE RECORDS SUMMARY | 2025-02-20 10:08 | XMS_ITS | Encounter Summary ---
Author Organization [facility] Address [address] [place] [address] Phone Care Team Providers Care Oven Builder Name Role Phone Reynaldo Vargas MD Primary Care Provider Sal Mosley MD Unavailable Devan Sullivan MD, PhD Unavailable [phone] Encounter Details Date Type Department Care Team (Late Contact Info) Description 06/24/2019 Ancillary Orders [facility] Imaging [address] [place], [place] [phone] System, Provider Not In, PhD Partners [address] [address] Social History Tobacco Use Types Packs/Day Years [...] (Late Contact Info) Description 10/12/2024 Procedure Pass [address] [place] [address] 05/09/2025 10:15 AM EST Appointment [address] Bhakta[place]kean, [place] [address] System, Provider [place] In, [place] [address] documented as of this encounter Results * Mammogram Outside (No Interpretation) (10/30/2011 12:00 AM EDT) Narrative SYSTEMGENERATED, DOCUMENTATION - 06/24/2019 10:38 AM EST This study is for PACS storage only and not for interpretation. us Provider Not In System PhD IMG OUTSIDE IMAGING W /OUT INTERPRETATION Final Result documented in this encounter Visit Diagnoses Not on filedocumented in this encounter Care Teams Oven Builder Relationship Specialty Start Date End Date Reynaldo Vargas MD [address] [place] [address] PCP - General Family Medicine 05/31/19 Sal Mosley MD [address] [place] [address] [email or web address] Primary Oncologist Hematology and Oncology 05/04/20 01/21/21 Devan Sullivan MD, PhD [address] [address] [email or web address] Consulting Provider Hematology 01/22/21 documented as of this encounter Additional Source Comments The information contained in this document represents components of the legal health record. It is not the complete legal health record.[facility]
--- OUTSIDE RECORDS SUMMARY | 2025-02-20 10:08 | XMS_ITS | Encounter Summary ---
Author Organization [facility] Address [address] [place] [address] Phone Care Team Providers Care Electronic Integrated Systems Mechanic Name Role Phone Reynaldo Vargas MD Primary Care Provider Reynaldo Vargas MD Primary Care Provider Sal Mosley MD Unavailable Devan Sullivan MD, PhD Unavailable Encounter Details Date Type Department Care Team (Late st Contact Info) Description 05/10/2019 Transcribe Orders [facility] Laboratory [address] [place] [address] Sal Mosley MD [address] [place] [phone] [email or web address] Screening for unspecified condition (Primary Dx) Social [...] st Contact Info) Description 10/12/2024 Procedure Pass [address] [place] [address] 05/09/2025 10:15 AM EST Appointment [address] Martin [place] [address] System, Provider Not In, [place] [address] documented as of this encounter Visit Diagnoses Diagnosis Screening for unspecified condition- Primary documented in this encounter Care Teams Electronic Integrated Systems Mechanic Relationship Specialty Start Date End Date Reynaldo Vargas MD [address] [place] [address] [email or web address] PCP - General Family Medicine 05/10/19 05/30/19 Reynaldo Vargas MD [address] [place] [address] [email or web address] PCP - General Family Medicine 05/31/19 Sal Mosley MD [address] [place] [address] [email or web address] Primary Oncologist Hematology and Oncology 05/04/20 01/21/21 Devan Sullivan MD, PhD [address] [address] [email or web address] Consulting Provider Hematology 01/22/21 documented as of this encounter Additional Source Comments The information contained in this document represents components of the legal health record. It is not the complete legal health record.[facility]
--- OUTSIDE RECORDS SUMMARY | 2025-02-20 10:08 | XMS_ITS | Encounter Summary ---
Author Organization [facility] Address [address] [place] [address] Phone Care Team Providers Care Supervisor Scrap Preparation Name Role Phone Hanna Tolbert MD Primary Care Provider [email or web address] Reynaldo Vargas MD Primary Care Provider [phone] Reynaldo Vargas MD Primary Care Provider [phone] Sal Mosley MD Unavailable Devan Sullivan MD, PhD Unavailable [phone] Encounter Details Date Type Department Care Team (Late st Contact Info) Description 10/11/2018 Telephone [facility] at [address] [address] Sal Mosley MD [address] [place] [address] [phone] [email or web address] Social History Tobacco Use Types Packs/Day Years [...] st Contact Info) Description 10/12/2024 Procedure Pass [address] [place] [address] 05/09/2025 10:15 AM EST Appointment [address] [place] [address] System, Provider [place] In, [place] [address] documented as of this encounter Visit Diagnoses Not on filedocumented in this encounter Care Teams Supervisor Scrap Preparation Relationship Specialty Start Date End Date Hanna Tolbert MD [email or web address] PCP - General Family Medicine 08/27/18 05/09/19 Reynaldo Vargas MD [address] [place] [address] [email or web address] PCP - General Family Medicine 05/10/19 05/30/19 Reynaldo Vargas MD [address] [place] [address] [email or web address] PCP - General Family Medicine 05/31/19 Sal Mosley MD [address] [place] [address] [email or web address] Primary Oncologist Hematology and Oncology 05/04/20 01/21/21 Devan Sullivan MD, PhD [address] [address] [email or web address] Consulting Provider Hematology 01/22/21 documented as of this encounter Additional Source Comments The information contained in this document represents components of the legal health record. It is not the complete legal health record.[facility]
--- OUTSIDE RECORDS SUMMARY | 2025-02-20 10:08 | XMS_ITS | Encounter Summary ---
Author Organization [facility] Address [address] [place] [address] Phone Care Team Providers Care Client Director Name Role Phone Reynaldo Vargas MD Primary Care Provider Devan Sullivan MD, PhD Unavailable Encounter Details Date Type Department Care Team (Late st Contact Info) Description 04/19/2024 Procedure Pass [facility] [address] [place] [phone] Social History Tobacco Use Types Packs/Day Years [...] st Contact Info) Description 10/12/2024 Procedure Pass [address] [place] [address] 05/09/2025 10:15 AM EST Appointment [address] [place] [address] System, Provider Not In, PhD [employer] [address] [address] documented as of this encounter Visit Diagnoses Not on filedocumented in this encounter Care Teams Client Director Relationship Specialty Start Date End Date Reynaldo Vargas MD [address] [place] [address] [email or web address] PCP - General Family Medicine 05/31/19 Devan Sullivan MD, PhD [address] [address] [email or web address] Consulting Provider Hematology 01/22/21 documented as of this encounter Additional Source Comments The information contained in this document represents components of the legal health record. It is not the complete legal health record.[facility]
--- OUTSIDE RECORDS SUMMARY | 2025-02-20 10:08 | XMS_ITS | Encounter Summary ---
Author Organization [facility] Address [address] [place] [address] Phone Care Team Providers Care Fagot Heater Helper Name Role Phone Reynaldo Vargas MD Primary Care Provider Devan Sullivan MD, PhD Unavailable Encounter Details Date Type Department Care Team (Late st Contact Info) Description 05/14/2021 Procedure Pass [address] [place] [address] Social History Tobacco Use Types Packs/Day Years [...] st Contact Info) Description 10/12/2024 Procedure Pass [address] [place] [address] 05/09/2025 10:15 AM EST Appointment [address] [place] [address] System, Provider Not In, PhD [employer] [address] [address] documented as of this encounter Visit Diagnoses Not on filedocumented in this encounter Care Teams Fagot Heater Helper Relationship Specialty Start Date End Date Reynaldo Vargas MD [address] [place] [address] JATINDER [place] [address] [email or web address] PCP - General Family Medicine 05/31/19 Devan Sullivan MD, PhD [address] [address] [email or web address] [email or web address] Consulting Provider Hematology 01/22/21 documented as of this encounter Additional Source Comments The information contained in this document represents components of the legal health record. It is not the complete legal health record.[facility]
--- OUTSIDE RECORDS SUMMARY | 2025-02-20 10:08 | XMS_ITS | Encounter Summary ---
Author Organization [facility] Address [address] [place] [address] Phone Care Team Providers Care Event Specialist Product Demonstrator Name Role Phone Reynaldo Vargas MD Primary Care Provider [phone] Devan Sullivan MD, PhD Unavailable Encounter Details Date Type Department Care Team (Late st Contact Info) Description 05/14/2021 Transcribe Orders Virtual Department [address] [place] [address] Reynaldo Vargas MD [address] [place] [address] [email or web address] Breast screening (Primary Dx) Social History Tobacco [...] st Contact Info) Description 10/12/2024 Procedure Pass [address] [place] [address] 05/09/2025 10:15 AM EST Appointment [address] [place] [address] System, Provider Not In, PhD [address] [address] documented as of this encounter Results * [...] unspecified documented in this encounter Care Teams Event Specialist Product Demonstrator Relationship Specialty Start Date End Date Reynaldo Vargas MD [address] [place] [address] [email or web address] PCP - General Family Medicine 05/31/19 Devan Sullivan MD, PhD [address] [address] [email or web address] Consulting Provider Hematology 01/22/21 documented as of this encounter Additional Source Comments The information contained in this document represents components of the legal health record. It is not the complete legal health record.[facility]
--- OUTSIDE RECORDS SUMMARY | 2025-02-20 10:08 | XMS_ITS | Encounter Summary ---
Author Organization [facility] Address [address] [place] [address] Phone Care Team Providers Care Histologist Technologist Name Role Phone Reynaldo Vargas MD Primary Care Provider [phone] Devan Sullivan MD, PhD Unavailable Encounter Details Date Type Department Care Team (Late st Contact Info) Description 01/04/2024 Ancillary Orders [facility], [address] [address] Reynaldo Vargas MD [address] [place] [address] [email or web address] Abnormal mammogram (Primary Dx) Social History Tobacco [...] st Contact Info) Description 10/12/2024 Procedure Pass [address] [place] [address] 05/09/2025 10:15 AM EST Appointment [address] [place] [address] System, Provider [place] In, [place] [address] documented as of this encounter Results * [...] unspecified documented in this encounter Care Teams Histologist Technologist Relationship Specialty Start Date End Date Reynaldo Vargas MD [address] [place] [address] [email or web address] PCP - General Family Medicine 05/31/19 Devan Sullivan MD, PhD [address] [address] [email or web address] Consulting Provider Hematology 01/22/21 documented as of this encounter Additional Source Comments The information contained in this document represents components of the legal health record. It is not the complete legal health record.[facility]
--- OUTSIDE RECORDS SUMMARY | 2025-02-20 10:08 | XMS_ITS | Clinical Summary ---
Author Organization [facility] Address [address] [place] [address] Phone Care Team Providers Care Latex Ribbon Machine Operator Name Role Phone Reynaldo Vargas MD Primary Care Provider Devan Sullivan MD, PhD Unavailable Allergies No [...] possible nonpharmacologic measures. 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 Periodic monitoring advised. Immunizations Immunization Administration Dates Next Due COVID-19 [...] Contact Info) Description 10/12/2024 Procedure Pass [address] [place] [address] 05/09/2025 10:15 AM EST Appointment [address] [place] [address] System, Provider Not In, [place] [address] Health Maintenance Due Date Last Done Comments LIPID PANEL 1979 DEPRESSION SCREENING 1991 HEPATITIS C SCREENING 1997 HIV ONE-TIME SCREENING (18-65 YEARS) 1997 PAP SMEAR 11/07/2018 11/08/2015, 10/25, 09/28/2014 COLOGUARD 01/25/2024 COLONOSCOPY 01/25/2024 COLORECTAL CANCER SCREENING 01/25/2024 FIT TEST 01/25/2024 FOBT 01/25/2024 SIGMOIDOSCOPY 01/25/2024 VIRTUAL COLONOSCOPY 01/25/2024 INFLUENZA VACCINE (#1) 2024 , 02/28/2022, 02/09/2021, Additional history exists COVID-19 VACCINE (2024- season) 2024 02/18/2023, 05/22/2022, 03/16/2021, Additional history exists MAMMOGRAM 12/31/2025 01/01/2024, 09/25, [...] this topic Medical Devices Implanted Type Area Short Haul Driver Device Identifier Shelf Expiration Date Model / Serial / Lot Marker Ultraclip 17ga 10cm Tissue Dual Trigger Breast Ti Heart Shape Bx/5ea - [id number] Implanted:Qty: 1 on 04/11/2024 by Maryam Fairbanks MD at [facility] Left: Axilla sli.do [employer] [id number] / / Description:TISSUE MARKER IS VISION SHAPED [...] for theadditional imaging. us Reynaldo Vargas MD IMG MG EXAMS Edited * Pap Smear (11/08/2015 12:00 AM EDT) 11/08/2015 11/09/2015 2:2 3 PM EDT Narrative SEE NARRATIVE - 11/13/2015 4:34 PM EDT [address], [place] [address] GO GO DANCER Cytology Report FINAL DIAGNOSIS A. CERVICAL, LIQUID BASED SPECIMEN: SPECIMEN ADEQUACY: Satisfactory for evaluation. INTERPRETATION: NEGATIVE FOR INTRAEPITHELIAL LESION OR MALIGNANCY. This specimen was analyzed by the automated ThinPrep Imaging System ([employer] Jeremy.) and the selected baxter were reviewed by a 911 emergency dispatcher. Electronically Signed Out By: WILFREDO Landrum(ASCP) Cervical [...] Interpretation of this material was performed at: [facility], Department of Pathology [address] [facility] [address] Advice Clerk: Rex Ruiz M.D. CLINICAL HISTORY Date of Last Menstrual Period: 11/03/2015 Other Clinical Conditions: Routine SPECIMEN SOURCE A: CERVICAL, LIQUID BASED SPECIMEN GROSS DESCRIPTION One ThinPrep vial received. Patient Name: YANELIS DE LA CRUZ : 1980 (Age: 35) Sex: F Institution: [facility] Location: [facility] Date of Collection: 11/08/2015 Date of Reported: 11/13/2015 16:34 Results to: Virgen Day MD Virgen Day MD CYTOLOGY ORDERABLES Fin al Result SEE NARRATIVE from Last 3 Months or Most Recently Relevant to Health Maintenance Insurance [employer] [facility] CHO[facility] Member Subscriber Plan / Payer ([facility]/27/2015-Present) Name:Yanelis De La Cruz Relation to Subscriber:Self Name:Yanelis De La Cruz Payer ID:[id number] (NAIC) Type:PPO Address: [address] [place] [address] [facility] CHO[facility] Member Subscriber Plan / Payer ([facility] 12/27/2015-Present) Name:Yanelis De La Cruz Relation to Subscriber:Self Name:Yanelis De La Cruz Payer ID:[id number] (NAIC) Type:PPO Address: [address] [place] [address] [place] [address] COMMUNITY CHOICE [place] [facility] [place] [facility] CHOICE [place] Care Teams Latex Ribbon Machine Operator Relationship Specialty Start Date End Date Reynaldo Vargas MD [address] [place] [address] [email or web address] PCP - General Family Medicine 05/31/19 Devan Sullivan MD, PhD [address] [address] [email or web address] Consulting Provider Hematology 01/22/21 Additional Source Comments The information contained in this document represents components of the legal health record. It is not the complete legal health record.[facility]
--- OUTSIDE RECORDS SUMMARY | 2025-02-20 10:08 | XMS_ITS | Encounter Summary ---
Author Organization [facility] Address [address] [place] [address] Phone Care Team Providers Care Evp Business Development Name Role Phone Reynaldo Vargas MD Primary Care Provider Reynaldo Vargas MD Primary Care Provider Sal Mosley MD Unavailable Devan Sullivan MD, PhD Unavailable Encounter Details Date Type Department Care Team (Late st Contact Info) Description 05/17/2019 Ancillary Orders Virtual Department [address] [place] [address] Reynaldo Vargas MD [address] [place] [address] Breast screening Social History Tobacco Use Types [...] st Contact Info) Description 10/12/2024 Procedure Pass [address] [place] [address] 05/09/2025 10:15 AM EST Appointment [address] [place] [address] System, Provider Not In, PhD Partners [address] [address] documented as of this encounter Results * [...] or other abnormalities are seen. Procedure Note Larry Davis MD - 06/24/2019 STUDY: Bilateral screening [...] unspecified documented in this encounter Care Teams Evp Business Development Relationship Specialty Start Date End Date Reynaldo Vargas MD [address] [place] [address] [email or web address] PCP - General Family Medicine 05/10/19 05/30/19 Reynaldo Vargas MD [address] [place] [address] [email or web address] PCP - General Family Medicine 05/31/19 Sal Mosley MD [address] [place] [address] [email or web address] Primary Oncologist Hematology and Oncology 05/04/20 01/21/21 Devan Sullivan MD, PhD [address] [address] [email or web address] Consulting Provider Hematology 01/22/21 documented as of this encounter Additional Source Comments The information contained in this document represents components of the legal health record. It is not the complete legal health record.[facility]
--- OUTSIDE RECORDS SUMMARY | 2025-02-20 10:08 | XMS_ITS | Encounter Summary ---
Author Organization [facility] Address [address] [place] [address] Phone Care Team Providers Care Group Underwriter Name Role Phone Reynaldo Vargas MD Primary Care Provider [phone] Devan Sullivan MD, PhD Unavailable [phone] Reason for Referral * Outpatient Procedure - New Request Specialty Diagnoses / Procedures Referred By Roosevelt hagan Referred To Contact Radiology Diagnoses Abnormal mammogram Procedures Mammogram Diagnostic Post Procedure (Left) Reynaldo Vragas MD [address] [place] [address] Phone: tel: fax: mailto:[email or web address] Referral ID Status Reason Start Date Expiration Date V isits Requested Visits Authorized [id number] New Request 04/11/2024 1 1 Encounter Details Date Type Department Care Team (Late st Contact Info) Description 04/11/2024 Ancillary Orders [facility], Mammography- [address] [address] Reynaldo Vargas MD [address] [place] [address] [email or web address] Abnormal mammogram (Primary Dx) Social History Tobacco [...] st Contact Info) Description 10/12/2024 Procedure Pass [address] [place] [address] 05/09/2025 10:15 AM EST Appointment [address] [place] [address] System, Provider [place] In, [place] [address] documented as of this encounter Results * [...] available. Narrative 04/11/2024 10:28 AM EST BI [facility] BIOPSY OF BREAST (LEFT), BI MAMMOGRAM DIAGNOSTIC [...] were no immediate complications. Reynaldo Vargas MD [facility] EXAMS Edited Resul t - Final documented in this encounter Visit Diagnoses Diagnosis Abnormal mammogram- Primary Abnormal mammogram, unspecified Abnormal mammogram Abnormal mammogram, unspecified documented in this encounter Care Teams Group Underwriter Relationship Specialty Start Date End Date Reynaldo Vargas MD [address] [place] [address] PCP - General Family Medicine 05/31/19 Dvean Sullivan MD, PhD [address] [place] [address] YAW9 JATINDER [place] [address] [email or web address] Consulting Provider Hematology 01/22/21 documented as of this encounter Additional Source Comments The information contained in this document represents components of the legal health record. It is not the complete legal health record.[facility]
--- OUTSIDE RECORDS SUMMARY | 2025-02-20 10:08 | XMS_ITS | Encounter Summary ---
Author Organization [facility] Address [address] [place] [address] Phone Care Team Providers Care Piccoloist Name Role Phone Reynaldo Vargas MD Primary Care Provider Devan Sullivan MD, PhD Unavailable Encounter Details Date Type Department Care Team (Late st Contact Info) Description 10/12/2024 Transcribe Orders Virtual Department [address] [place] [address] Rafia Alarcon [place] [email or web address] Breast screening (Primary Dx) Social History Tobacco [...] st Contact Info) Description 10/12/2024 Procedure Pass [address] [place] [address] 05/09/2025 10:15 AM EST Appointment [address] [place] [address] System, Provider [place] In, [place] [address] Scheduled Orders Name Type Priority Associated Diagnoses Orde r Schedule Mammogram Screening (Bilateral) Imaging Routine Breast screening Expected: 10/12/2024, Expires: 10/12/2026 documented as of this encounter Visit Diagnoses Diagnosis Breast screening- Primary Breast screening, unspecified documented in this encounter Care Teams Piccoloist Relationship Specialty Start Date End Date Reynaldo Vargas MD [address] [place] [address] [email or web address] PCP - General Family Medicine 05/31/19 Devan Sullivan MD, PhD [address] [place] [address] [email or web address]. [email or web address] Consulting Provider Hematology 01/22/21 documented as of this encounter Additional Source Comments The information contained in this document represents components of the legal health record. It is not the complete legal health record.[facility]
--- OUTSIDE RECORDS SUMMARY | 2025-02-20 10:08 | XMS_ITS | Encounter Summary ---
Author Organization [facility] Address [facility] [employer] [address] [address] Phone Care Team Providers Care Magnetic Healer Name Role Phone Reynaldo Vargas MD Primary Care Provider Devan Sullivan MD, PhD Unavailable Encounter Details Date Type Department Care Team (Late st Contact Info) Description 01/04/2024 Procedure Pass [facility] - [address] [place] [phone] Social History Tobacco Use Types Packs/Day Years [...] st Contact Info) Description 10/12/2024 Procedure Pass [address] [place] [address] 05/09/2025 10:15 AM EST Appointment [address] [place] [address] System, Provider Not In, PhD Partners [address] [address] documented as of this encounter Visit Diagnoses Not on filedocumented in this encounter Care Teams Magnetic Healer Relationship Specialty Start Date End Date Reynaldo Vargas MD [address] [place] [address] [email or web address] PCP - General Family Medicine 05/31/19 Devan Sullivan MD, PhD [address] [address] [email or web address] Consulting Provider Hematology 01/22/21 documented as of this encounter Additional Source Comments The information contained in this document represents components of the legal health record. It is not the complete legal health record.[facility]
== END 2025-02-20 09:13 | disposition home or self-care (01) ==
LOC: HO.XRAY 09:12
PROVIDERS: PCP Family Medicine; Visit Provider Family Medicine
DX: M54.9 Dorsalgia, unspecified (principal)
CPT/HCPCS: 72100

== ENCOUNTER → 2025-02-20 09:20 | Outpatient (BNV) | payer OTHER, SELFPAY | PROVIDERS: PCP Family Medicine; Visit Provider Radiology Diagnostic Ultrasound | DX: M54.50 Low back pain, unspecified (principal) | CPT/HCPCS: 72100 ==